=== PATIENT | male | born 1955 | race Caucasian/White ===

== ENCOUNTER 2016-08-17 18:40 | Emergency (ER) | payer OTHER ==
[2016-08-17 19:32] LABS: Urine Appearance Slightly Cloudy; Urine Bilirubin Negative (NEGATIVE); Urine Blood 5 /ul (NEGATIVE); Urine Color Yellow; Urine Ketone Negative (NEGATIVE); Urine Specific Gravity 1.005 SP.GR. (1.005-1.030)
[2016-08-17 19:33] LABS: Urine Bacteria None Seen; Urine Nitrite Negative (NEGATIVE); Urine Protein Negative (NEGATIVE); Urine RBC 0-5 /hpf (0-5); Urine Urobilinogen Normal (NORMAL)
--- NOTE | 2016-08-17 20:06 | ERNOTE ---
ER Male HPI Date of Service: 08/17/16 Stated Complaint: URINE CHECK ER Male: dysuria, other - dribbling Time Seen by Provider: 08/17/16 20:01 Source: patient Immunizations: IMMUNIZATION HX Immunizations Up to Date Yes History of Influenza Vaccine Yes Hx Pneumococcal Vaccination Yes Allergies/Adverse Reactions: Allergies latex Adverse Reaction (Verified 02/22/16 17:20) Home Medications: HOME MEDICATIONS Insulin Regular, Human [Humulin R] See Protocol SC AC 10/28/13 [Last Taken 11/14] LORazepam [Ativan] 0.5 mg PO TID PRN 07/19/14 [Last Taken Unknown] LORazepam [Ativan] 1 mg PO HS 07/19/14 [Last Taken 11/15/15] Liothyronine Sodium [Cytomel] 25 mcg PO HS 07/19/14 [Last Taken 11/15/15] traZODone HCL [Desyrel] 300 mg PO HS 07/19/14 [Last Taken 11/15/15] Nortriptyline HCl [Pamelor] 250 mg PO HS capsule 07/21/14 [Last Taken Unknown] Insulin Glargine,Hum.rec.anlog [Lantus] 25 units SC HS 02/26/15 [Last Taken ] Nitrofurantoin/Nitrofuran Mac [Macrobid] 100 mg PO Q12H #6 cap 08/29/15 [Last Taken Unknown] Phenazopyridine HCl [Pyridium] 200 mg PO TID #6 tablet 08/29/15 [Last Taken Unknown] Aspirin 325 mg PO DAILY 11/16/15 [Last Taken 11/15/15] Calcium 600-Vit D3 800 Tablet 1 tab PO DAILY 11/16/15 [Last Taken 11/15/15] Cholecalciferol (Vitamin D3) [Vitamin D3] 2,000 unit PO 11/16/15 [Last Taken ] Folic Acid 1 mg PO DAILY 11/16/15 [Last Taken 11/15/15] Insulin Aspart [Novolog] 4 units SC ACHSINS vial 11/16/15 [Last Taken Unknown] Insulin Glargine,Hum.rec.anlog [Lantus] 25 units SC HS vial 11/16/15 [Last Taken Unknown] [place]-3 Fatty Acids/Fish Oil [Fish Oil 1,000 mg Capsule] 1,000 mg PO DAILY 11/15 [Last Taken 11/15/15] Vitamin E Acetate [Vitamin E] 600 unit PO DAILY 11/16/15 [Last Taken 11/15/15] Sulfamethoxazole/Trimethoprim [Bactrim Ds] 1 tab PO BID #14 tab 08/17/16 [Last Taken Unknown] - History of Present Illness Narrative: 61 year old that has a one day history of dribbling and dysuria which he has associated with frequent UTIs. Hx of a neurogenic bladder secondary to diabetes mellitus, self catherterizes. No complaints of fevers, chills, N/V or back pain. Completed a course of antibiotics 10 days ago but can not remember what the drug was. Complaints of feeling anxious since his Nortriptyline was decreased. Denies any homicidal or suicidal ideations. Timing: Present: intermittent Quality: Present: mild Onset Location: Present: other Radiation: Present: none Activities at Onset: Present: none Modifying Factors - (Improves): Present: other - none Modifying Factors - (Worsens): Present: urinating, other Associated Symptoms: Present: denies symptoms Prior Treatment: Present: treated by physician Review of Systems - Review of Systems Constitutional: Present: no symptoms reported EYE: Present: no symptoms reported ENT: Present: no symptoms reported Respiratory: Present: no symptoms reported Cardiology: Present: no symptoms reported Gastrointestinal/Abdominal: Present: no symptoms reported Genitourinary: Present: See HPI Musculoskeletal: Present: no symptoms reported Skin: Present: no symptoms reported Neurological: Present: no symptoms reported Endocrine: Present: See HPI Hematologic/Lymphatic: Present: no symptoms reported Psych: Present: anxiety - His - Patient's Past Medical History Patient History - Medical: Cataracts, Diabetes Type 2, Diabetes Type 2 Insulin Dependent, Depression, UTI'S, Other Patient History - Cardiac/Respiratory: No pertinent hx Patient History - Cancer: No Hx of Cancer Patient History - Surgical Procedures: Cataracts, Cholecystectomy Patient History - Other: None - Family History Mother Family History - Medical: , No pertinent hx Family History - Cardiac/Respiratory: No pertinent hx Father Family History - Medical: , No pertinent hx - Social History Living Situations: spouse Abuse History: No History of abuse Psych History: No pertinent hx Smoking Status: Never smoker Alcohol Use: occasionally Drug Use: none - Immunizations Immunizations Up to Date: Yes Hx Pneumococcal Vaccination: Yes History of Influenza Vaccine: Yes Physical Exam - Physical Exam General Appearance: Present: no apparent distress Eye Exam: Normal inspection: bilateral Ears, Nose, Throat: Present: normal ENT inspection Neck: Present: normal inspection Respiratory: Present: no respiratory distress Cardiovascular/Chest: Present: regular rate, rhythm Gastrointestinal/Abdominal: Present: nondistended, soft Back Exam: Present: normal inspection Extremity Exam: Present: normal inspection Neurological Exam: Present: alert, oriented Skin Exam: Present: normal color ED Progress - Results and Orders Patient's Lab Results:: I have reviewed the patient's lab results. - Vital Signs Patient's Vital Signs:: I have reviewed the patient's vital signs. Vital Signs: Vital Signs 08/17/16 18:59 Temperature 37.2 C Pulse Rate 68 Respiratory 14 Rate Blood Pressure 160/82 O2 Sat by Pulse 99 Oximetry - Progress/Reassessment Chief Complaint: Genitourinary Problem Progress:: Unchanged Progress Note-Subjective: 08/17/16 20:48 The patient refused the Bactrim prescription, but then also declined Cipro. 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 She will administer the Rocephin at home. Departure Clinical Impression: Dysuria - Departure Disposition: Home self-care Condition: Good Instructions: Dysuria Print Language: [place] Citizen Additional Instructions: Follow up with your mental health counselor on Thursday in regards to changing the dosage of your medications and how you are feeling. Drink lots of water. If you feel worse return to the ED. Referrals: Eliel Jalloh MD [Primary Care Provider] - Prescriptions: Sulfamethoxazole/Trimethoprim [Bactrim Ds] 1 tab PO BID #14 tab
[2016-08-17] MEDS ORDERED: LORazepam 1 MG TABLET PO ONE (20:10)
[2016-08-17] MEDS ORDERED: LORazepam 1 MG TABLET ONE (20:16)
[2016-08-17] MEDS ORDERED: SULFAMETHOXAZOLE/TRIMETHOPRIM 1 TAB TABLET ONE (20:17)
[2016-08-17] MEDS: SULFAMETHOXAZOLE/TRIMETHOPRIM 1 TAB TABLET PO ONE ×2 (20:20→21:39)
[2016-08-17] MEDS ORDERED: CIPROFLOXACIN HCL 250 MG TABLET ONE (20:34)
[2016-08-17 21:40] VITALS: BP 187/77
== END 2016-08-17 21:00 | disposition home or self-care (01) ==
LOC: ER 18:40
DX: R30.0 Dysuria (principal)

== ENCOUNTER 2016-09-16 22:20 | Emergency (ER) | payer OTHER ==
[2016-09-16 22:31] VITALS: BP 138/78
[2016-09-16 22:41] LABS: Urine Bilirubin Negative (NEGATIVE); Urine Ketone Negative (NEGATIVE); Urine Nitrite Negative (NEGATIVE); Urine Protein Negative (NEGATIVE); Urine Urobilinogen Normal (NORMAL)
[2016-09-16 22:56] LABS: Urine Appearance Clear; Urine Bacteria 1+; Urine Blood 5 /ul (NEGATIVE); Urine Color Yellow; Urine RBC 0-5 /hpf (0-5)
--- NOTE | 2016-09-16 23:24 | ERNOTE ---
ER Male HPI Stated Complaint: URINARY PROBLEM ER Male: other - urinary frequency Time Seen by Provider: 09/16/16 23:20 Source: patient Exam Limitations: no limitations Immunizations: IMMUNIZATION HX Immunizations Up to Date Yes History of Influenza Vaccine Yes Hx Pneumococcal Vaccination Yes Allergies/Adverse Reactions: Allergies latex Adverse Reaction (Verified 09/16/16 22:31) Home Medications: HOME MEDICATIONS Insulin Regular, Human [Humulin R] See Protocol SC AC 10/28/13 [Last Taken 11/14] LORazepam [Ativan] 0.5 mg PO TID PRN 07/19/14 [Last Taken Unknown] LORazepam [Ativan] 1 mg PO HS 07/19/14 [Last Taken 11/15/15] Liothyronine Sodium [Cytomel] 25 mcg PO HS 07/19/14 [Last Taken 11/15/15] traZODone HCL [Desyrel] 300 mg PO HS 07/19/14 [Last Taken 11/15/15] Nortriptyline HCl [Pamelor] 250 mg PO HS capsule 07/21/14 [Last Taken Unknown] Insulin Glargine,Hum.rec.anlog [Lantus] 25 units SC HS 02/26/15 [Last Taken ] Nitrofurantoin/Nitrofuran Mac [Macrobid] 100 mg PO Q12H #6 cap 08/29/15 [Last Taken Unknown] Phenazopyridine HCl [Pyridium] 200 mg PO TID #6 tablet 08/29/15 [Last Taken Unknown] Aspirin 325 mg PO DAILY 11/16/15 [Last Taken 11/15/15] Calcium 600-Vit D3 800 Tablet 1 tab PO DAILY 11/16/15 [Last Taken 11/15/15] Cholecalciferol (Vitamin D3) [Vitamin D3] 2,000 unit PO 11/16/15 [Last Taken ] Folic Acid 1 mg PO DAILY 11/16/15 [Last Taken 11/15/15] Insulin Aspart [Novolog] 4 units SC ACHSINS vial 11/16/15 [Last Taken Unknown] Insulin Glargine,Hum.rec.anlog [Lantus] 25 units SC HS vial 11/16/15 [Last Taken Unknown] [place]-3 Fatty Acids/Fish Oil [Fish Oil 1,000 mg Capsule] 1,000 mg PO DAILY 11/15 [Last Taken 11/15/15] Vitamin E Acetate [Vitamin E] 600 unit PO DAILY 11/16/15 [Last Taken 11/15/15] Sulfamethoxazole/Trimethoprim [Bactrim Ds] 1 tab PO BID #14 tab 08/17/16 [Last Taken Unknown] - History of Present Illness Narrative: Pt states he has been having frequent urination of small amounts and is concerned that he may have a UTI as he has frequently. Quality: Present: mild Activities at Onset: Present: none Review of Systems - Review of Systems Constitutional: Absent: recent illness, fever, chills, fatigue Gastrointestinal/Abdominal: Absent: nausea, vomiting, abdominal pain Genitourinary: Present: See HPI. Absent: dysuria Musculoskeletal: Absent: back pain - Patient's Past Medical History Patient History - Medical: Cataracts, Diabetes Type 2, Diabetes Type 2 Insulin Dependent, Depression, UTI'S, Other Patient History - Cardiac/Respiratory: No pertinent hx Patient History - Cancer: No Hx of Cancer Patient History - Surgical Procedures: Cataracts, Cholecystectomy Patient History - Other: None - Family History Mother Family History - Medical: , No pertinent hx Family History - Cardiac/Respiratory: No pertinent hx Father Family History - Medical: , No pertinent hx - Social History Living Situations: home Abuse History: No History of abuse Psych History: No pertinent hx Smoking Status: Never smoker Alcohol Use: occasionally Drug Use: none - Immunizations Immunizations Up to Date: Yes Hx Pneumococcal Vaccination: Yes History of Influenza Vaccine: Yes Physical Exam - Physical Exam General Appearance: Present: wd/wn, alert, no apparent distress Head Exam: Present: normal inspection, no evidence of injury Eye Exam: Normal inspection: bilateral Neck: Present: normal inspection, supple, full range of motion Respiratory: Present: no respiratory distress, no accessory muscle use Gastrointestinal/Abdominal: Present: normal bowel sounds, nontender, nondistended, soft Back Exam: Present: normal inspection, normal range of motion, no CVA tenderness Extremity Exam: Present: normal inspection, non-tender Neurological Exam: Present: alert, oriented, normal mood/affect Skin Exam: Present: normal color, warm/dry ED Progress - Results and Orders Patient's Lab Results:: I have reviewed the patient's lab results. Results and Orders: Laboratory Tests 09/16/16 22:31 Urine Color Yellow Urine Appearance Clear Urine pH 6.0 Ur Specific [place] 1.010 Urine Protein Negative Urine Glucose (UA) Negative Urine Ketones Negative Urine Blood 5 H Urine Nitrate Negative Urine Bilirubin Negative Urine Urobilinogen Normal Ur Leukocyte Esterase Negative Urine RBC 0-5 Urine WBC 5-10 H Ur Epithelial Cells None seen Urine Bacteria 1+ H Urine Culture Comments Culture to follow - Vital Signs Patient's Vital Signs:: I have reviewed the patient's vital signs. Vital Signs: Vital Signs 09/16/16 22:29 Temperature 38.9 C H Pulse Rate 100 Respiratory 20 Rate Blood Pressure 138/78 O2 Sat by Pulse 100 Oximetry - Progress/Reassessment Chief Complaint: Genitourinary Problem Progress Note-Subjective: 09/16/16 23:24 discussed normal UA with patient he does not want any other testing done. declines further lab work. Departure Clinical Impression: Frequency of urination - Departure Disposition: Home self-care Condition: Good Instructions: Urinary Frequency, Adult Additional Instructions: See your regular doctor if symptoms persist. your urine will be cultured and if something is positive you will be contacted Referrals: Eliel Jalloh MD [Primary Care Provider] -
== END 2016-09-16 23:32 | disposition home or self-care (01) ==
LOC: ER 22:20
DX: R35.0 Frequency of micturition (principal); Z87.440 Personal history of urinary (tract) infections

== ENCOUNTER 2016-11-10 19:30 | Emergency (ER) | payer OTHER ==
[2016-11-10 19:50] LABS: Urine Bilirubin Negative (NEGATIVE); Urine Ketone Negative (NEGATIVE); Urine Nitrite Negative (NEGATIVE); Urine Protein Negative (NEGATIVE); Urine Specific Gravity <=1.005 SP.GR. (1.005-1.030); Urine Urobilinogen Normal (NORMAL)
[2016-11-10 20:06] LABS: Urine Appearance Clear; Urine Bacteria 1+; Urine Blood 5 /ul (NEGATIVE); Urine Color Yellow; Urine RBC 0-5 /hpf (0-5)
[2016-11-10 20:07] LABS: Urine Yeast Few - 1+
--- NOTE | 2016-11-10 20:24 | ERNOTE ---
ER Male HPI Stated Complaint: URINARY PROBLEM ER Male: other - feeling sick Time Seen by Provider: 11/10/16 20:11 Source: patient Exam Limitations: no limitations Immunizations: IMMUNIZATION HX Immunizations Up to Date Yes History of Influenza Vaccine More Information Required Hx Pneumococcal Vaccination More Information Required Allergies/Adverse Reactions: Allergies No Known Drug Allergies Allergy (Verified 11/10/16 19:33) latex Adverse Reaction (Verified 11/10/16 19:33) Home Medications: HOME MEDICATIONS Insulin Regular, Human [Humulin R] See Protocol SC AC 10/28/13 [Last Taken 11/14] LORazepam [Ativan] 0.5 mg PO TID PRN 07/19/14 [Last Taken Unknown] LORazepam [Ativan] 1 mg PO HS 07/19/14 [Last Taken 11/15/15] Liothyronine Sodium [Cytomel] 25 mcg PO HS 07/19/14 [Last Taken 11/15/15] traZODone HCL [Desyrel] 300 mg PO HS 07/19/14 [Last Taken 11/15/15] Nortriptyline HCl [Pamelor] 250 mg PO HS capsule 07/21/14 [Last Taken Unknown] Insulin Glargine,Hum.rec.anlog [Lantus] 25 units SC HS 02/26/15 [Last Taken ] Nitrofurantoin/Nitrofuran Mac [Macrobid] 100 mg PO Q12H #6 cap 08/29/15 [Last Taken Unknown] Phenazopyridine HCl [Pyridium] 200 mg PO TID #6 tablet 08/29/15 [Last Taken Unknown] Aspirin 325 mg PO DAILY 11/16/15 [Last Taken 11/15/15] Calcium 600-Vit D3 800 Tablet 1 tab PO DAILY 11/16/15 [Last Taken 11/15/15] Cholecalciferol (Vitamin D3) [Vitamin D3] 2,000 unit PO 11/16/15 [Last Taken ] Folic Acid 1 mg PO DAILY 11/16/15 [Last Taken 11/15/15] Insulin Aspart [Novolog] 4 units SC ACHSINS vial 11/16/15 [Last Taken Unknown] Insulin Glargine,Hum.rec.anlog [Lantus] 25 units SC HS vial 11/16/15 [Last Taken Unknown] [place]-3 Fatty Acids/Fish Oil [Fish Oil 1,000 mg Capsule] 1,000 mg PO DAILY 11/15 [Last Taken 11/15/15] Vitamin E Acetate [Vitamin E] 600 unit PO DAILY 11/16/15 [Last Taken 11/15/15] Sulfamethoxazole/Trimethoprim [Bactrim Ds] 1 tab PO BID #14 tab 08/17/16 [Last Taken Unknown] - History of Present Illness Narrative: Pt self catheterizes his bladder multiple times daily, due to "weak bladder". Denies prostate problems. Timing: Present: constant, getting worse Quality: Present: moderate Onset Location: Present: suprapubic Radiation: Present: none Activities at Onset: Present: none Prior Abdominal Problems: Present: similar symptoms Review of Systems - Review of Systems Constitutional: Present: chills. Absent: fever EYE: Present: no symptoms reported ENT: Present: no symptoms reported Gastrointestinal/Abdominal: Absent: nausea, vomiting, diarrhea Genitourinary: Present: pain - minimal Musculoskeletal: Present: no symptoms reported Skin: Present: no symptoms reported Neurological: Present: no symptoms reported Endocrine: Present: no symptoms reported Hematologic/Lymphatic: Present: no symptoms reported Psych: Present: no symptoms reported - Patient's Past Medical History Patient History - Medical: Cataracts, Diabetes Type 2, Diabetes Type 2 Insulin Dependent, Depression, UTI'S, Other Patient History - Cardiac/Respiratory: No pertinent hx Patient History - Cancer: No Hx of Cancer Patient History - Surgical Procedures: Cataracts, Cholecystectomy Patient History - Other: None - Family History Mother Family History - Medical: , No pertinent hx Family History - Cardiac/Respiratory: No pertinent hx Father Family History - Medical: , No pertinent hx - Social History Living Situations: home Abuse History: No History of abuse Psych History: No pertinent hx Smoking Status: Former smoker Have you smoked in the past 12 months: No Do you dip or chew tobacco: No Alcohol Use: occasionally Drug Use: none - Immunizations Immunizations Up to Date: Yes Hx Pneumococcal Vaccination: More Information Required to Determine History of Influenza Vaccine: More Information Required to Determine Physical Exam - Physical Exam General Appearance: Present: wd/wn, alert, no apparent distress Head Exam: Present: normal inspection, no evidence of injury Respiratory: Present: no respiratory distress, no accessory muscle use Gastrointestinal/Abdominal: Present: normal bowel sounds, nondistended, soft, tenderness - suprapubic. Absent: guarding, rebound Back Exam: Present: normal inspection, normal range of motion, no CVA tenderness Extremity Exam: Present: normal inspection, normal range of motion Neurological Exam: Present: alert, oriented, normal mood/affect Skin Exam: Present: normal color, warm/dry Lymphatic Exam: Present: no adenopathy ED Progress - Results and Orders Patient's Lab Results:: I have reviewed the patient's lab results. Results and Orders: Laboratory Tests 11/10/16 19:40 Urine Color Yellow Urine Appearance Clear Urine pH 6.0 Ur Specific [place] <=1.005 Urine Protein Negative Urine Glucose (UA) >=1000 H Urine Ketones Negative Urine Blood 5 H Urine Nitrate Negative Urine Bilirubin Negative Urine Urobilinogen Normal Ur Leukocyte Esterase 25 H Urine RBC 0-5 Urine WBC 5-10 H Ur Epithelial Cells 0-5 Urine Bacteria 1+ H Urine Yeast Few - 1+ H Urine Culture Comments Culture to follow Laboratory Tests 11/10/16 11/10/16 11/10/16 19:40 20:55 20:55 WBC 14.3 H Hgb 11.6 L Hct 34.4 L Plt Count 266 Sodium 131 L Potassium 4.5 Chloride 96 L Carbon Dioxide 24.4 Anion Gap 15.1 H BUN 13 Creatinine 1.81 H D Est GFR (Non-Af Amer) 40 L D BUN/Creatinine Ratio 7.2 L Random Glucose 721 H* Calcium 7.8 L Urine Color Yellow Urine Appearance Clear Urine pH 6.0 Ur Specific [place] <=1.005 Urine Protein Negative Urine Glucose (UA) >=1000 H Urine Ketones Negative Urine Blood 5 H Urine Nitrate Negative Urine Bilirubin Negative Urine Urobilinogen Normal Ur Leukocyte Esterase 25 H Urine RBC 0-5 Urine WBC 5-10 H Ur Epithelial Cells 0-5 Urine Bacteria 1+ H Urine Yeast Few - 1+ H Urine Culture Comments Culture to follow - Vital Signs Patient's Vital Signs:: I have reviewed the patient's vital signs. Vital Signs: Vital Signs 11/10/16 19:33 Temperature 38.2 C H Pulse Rate 70 Respiratory 14 Rate Blood Pressure 156/65 O2 Sat by Pulse 97 Oximetry - Progress/Reassessment Chief Complaint: Genitourinary Problem Progress:: Unchanged Progress Note-Subjective: 11/10/16 20:46 I checked the patients previous urine culture. He was resistant to all but 4 antibiotics. He was previously placed on Ertapenem because it is dosed q 24 and others were q 12 or q 8. I spoke with Dr. Jalloh about placing Justo on Ertapenem 1000 mg IV daily and scheduling this through the [facility] until the culture comes back. He will follow the culture and make any adjustments at that point. 11/10/16 21:02 Spoke with the patient and his about plans to start IV antibiotics. Pt agrees with plan. Departure Clinical Impression: Pyelonephritis - Departure Disposition: Home Follow Up Needed Condition: Good Instructions: Pyelonephritis, Adult, [id number] Additional Instructions: continue with your IV antibiotics daily here at the [facility] until contacted by Dr. Jalloh about any changes. See Dr. Jalloh within one week for follow up. Referrals: Eliel Jalloh MD [Primary Care Provider] -
[2016-11-10 21:01] LABS: Hematocrit 34.4 % (42.0-52.0); Hemoglobin 11.6 gm/dL (13.5-18.0); Mean Corpuscular Hemoglobin 30.7 pg (27-31); Mean Corpuscular Hgb Conc 33.7 g/dl (32-36); Mean Platelet Volume 9.6 fl (6.0-9.5); Neutrophil # 11.2 K/mm3 (1.3-6.0); Neutrophil % 77.9 % (42-75.0); Platelet Count 266 K/mm3 (150-450); Red Blood Count 3.78 M/mm3 (4.7-6.0); Red Cell Distribution Width 12.5 % (11.5-14.0); White Blood Count 14.3 K/mm3 (4.0-10.5)
[2016-11-10 21:16] LABS: BUN/Creatinine Ratio 7.2 (9.0-21.6); Calcium * 7.8 mg/dL (7.9-10.9); Estimated Creat Clear 40.4; Potassium 4.5 mmol/L (3.4-4.6)
[2016-11-10 21:21] LABS: Anion Gap 15.1 mmol/L (6.8-13.8); Carbon Dioxide 24.4 mmol/L (24-32.6)
[2016-11-10] MEDS ORDERED: ERTAPENEM SODIUM 1,000 MG in NORMAL SALINE 50 ML IV ONE (22:00)
[2016-11-10 22:24] VITALS: BP 177/72
== END 2016-11-10 22:20 | disposition home or self-care (01) ==
LOC: ER 19:30
DX: N12 Tubulo-interstitial nephritis, not specified as acute or chronic (principal); Z87.440 Personal history of urinary (tract) infections; Z87.891 Personal history of nicotine dependence

== ENCOUNTER 2018-07-16 18:30 | Observation (INO) ==
[2018-07-16] MEDS ORDERED: ACETAMINOPHEN 500 MG TABLET PO ONE (18:39)
[2018-07-16] MEDS ORDERED: NORMAL SALINE 1,000 ML IV ONE (18:51)
[2018-07-16] MEDS ORDERED: cefTRIAXone SODIUM 1,000 MG/100 ML BAG IV ONE (18:52)
--- NOTE | 2018-07-16 18:55 | ERNOTE ---
Medical Problem HPI - Narrative Date of Service: 07/16/18 - General Chief Complaint: Fever Time Seen by Provider: 07/16/18 18:34 Source: patient, family Exam Limitations: clinical condition - Immun/Allergies/Home Medications Immunizations: IMMUNIZATION HX Immunizations Up to Date Yes History of Influenza Vaccine Yes Hx Pneumococcal Vaccination Yes Allergies/Adverse Reactions: Allergies latex Adverse Reaction (Verified 07/16/18 18:49) Home Medications: HOME MEDICATIONS nortriptyline 50 mg capsule 200 mg PO HS cap 10/13/17 [Last Taken Unknown] Aspirin [Aspir-Low] 81 mg PO DAILY 07/16/18 [Last Taken Unknown] Insulin Pump Syringe, 1.8 ml [Minimed [place]] 1 ea MC 07/16/18 [Last Taken Unknown] Magnesium Oxide [Magnesium] 400 mg PO DAILY 07/16/18 [Last Taken Unknown] Melatonin 1 mg PO HS PRN 07/16/18 [Last Taken Unknown] Selenium 200 mcg PO DAILY 07/16/18 [Last Taken Unknown] Vitamin E 1,000 unit PO DAILY 07/16/18 [Last Taken Unknown] traZODone HCL [Trazodone HCl] 2 - 3 tab PO HS 07/16/18 [Last Taken Unknown] - Pain Score Pain Score #1 Pain Score: 0 - History of Present History Narrative: The patient is a 63 year old male who presents for fever and lethargy which has been present since this am. There are no associated symptoms. The patient denies pain. There are no alleviating factors. There are no aggravating factors. Previous treatments have included: none. The past medical history includes: BPH, DM and neurogenic bladder. The social history is positive for chew tobacco. The patient has had no ill contacts. Patient is oriented and responds appropriately to questions but is lethargic. states patient was sleeping when she left for work this am. Upon return home she found patient sleeping in room fully dressed and difficult to wake. Review of Systems - Review of Systems Constitutional: Present: fever, fatigue, malaise EYE: Present: no symptoms reported ENT: Present: no symptoms reported. Absent: ear pain, nasal drainage, sore throat Respiratory: Present: no symptoms reported. Absent: shortness of breath, cough Cardiology: Present: no symptoms reported. Absent: chest pain Gastrointestinal/Abdominal: Present: no symptoms reported. Absent: nausea, vomiting, diarrhea, abdominal pain Genitourinary: Present: no symptoms reported Musculoskeletal: Present: no symptoms reported Skin: Present: no symptoms reported. Absent: rash Neurological: Present: no symptoms reported. Absent: headache All Other Systems: All systems neg except as marked Medical History (Updated 10/13/17 @ 11:42 by Joyce Bustamante) Recurrent UTI (Chronic) Onset Date: Unknown resultant pyelonephritis due to diabetic neurogenic bladder Pancreatic insufficiency (Chronic) Onset Date: Unknown intolerant to enzyme replacement due to the fact that it creates constipation Osteopenia (Chronic) Onset Date: Unknown Neurogenic bladder (Chronic) Onset Date: Unknown due to diabetes Hypogonadism in male (Chronic) Onset Date: Unknown Diabetic neuropathy (Chronic) Onset Date: Unknown requiring straight catheter placement Diabetic nephropathy (Chronic) Onset Date: Unknown Diabetes mellitus type II, controlled, with no complications (Chronic) Onset Date: Unknown Chronic fibrosing pancreatitis (Chronic) Onset Date: Unknown BPH with urinary obstruction (Chronic) Onset Date: ~08/2015 Wears glasses Wears hearing aid Surgical History: Surgical History (Updated 10/13/17 @ 11:38 by Joyce Bustamante) H/O cystoscopy Onset Date: ~09/03/15 [facility]- Dr. Patel H/O vasectomy Onset Date: ~1991 Hx of cholecystectomy Onset Date: ~1979 OPEN Family History: Family History (Updated 10/13/17 @ 11:43 by Joyce Bustamante) Mother Alive and well Age 93 Father , Age 80 unknown history Social History: Preferred Language Vincentian Smoking Status Never smoker Do you dip or chew tobacco Yes Abuse History No History of abuse Psych History Hx of Depression Alcohol Use none Drug Use none (Last Updated 10/13/17 @ 11:41 by Joyce Bustmaante) No Social History Section defined Physical Exam - Physical Exam General Appearance: Present: no apparent distress, lethargic Head Exam: Present: normal inspection, no evidence of injury Eye Exam: Normal inspection: bilateral Neck: Present: normal inspection Respiratory: Present: no respiratory distress, normal breath sounds, no accessory muscle use, lungs clear Cardiovascular/Chest: Present: regular rate, rhythm, no murmur Gastrointestinal/Abdominal: Present: normal bowel sounds, nontender, nondistended, soft, no organomegaly Neurological Exam: Present: oriented, other - lethargic Skin Exam: Present: normal color, warm/dry Progress - Date and Time Seen: Date and Time: 07/16/18 19:58 Discussed results and findings with . requesting transfer to [facility]. Discussed with that due to patient management at this facility as well as closer facility she may be responsible for transport cost. Patient discussing with patient. 07/16/18 20:13 Discussed case with will admit for observation. Discussed with and is ok with staying here. - Results and Orders Patient's Lab Results:: I have reviewed the patient's lab results. - Vital Signs Patient's Vital Signs:: I have reviewed the patient's vital signs. Vital Signs: Vital Signs 07/16/18 18:34 Temperature 39.7 C H Pulse Rate 88 Respiratory Rate 22 H Blood Pressure 136/60 O2 Sat by Pulse Oximetry 94 - X-Ray X-Ray #1 X-Ray: chest Interpretation: Reviewed by me X-ray Comments: Likely left lung infiltrate, diffuse haziness. - Progress/Reassessment Chief Complaint: Fever Departure Clinical Impression: Pneumonia Qualifiers: Pneumonia type: due to unspecified organism Laterality: left Lung location: unspecified part of lung Qualified Code(s): J18.9 - Pneumonia, unspecified organism - Departure Disposition: Still a patient Condition: Fair
[2018-07-16 19:00] LABS: Urine Bilirubin Negative (NEGATIVE); Urine Blood Negative /ul (NEGATIVE); Urine Ketone Negative (NEGATIVE); Urine Nitrite Negative (NEGATIVE); Urine Protein Negative (NEGATIVE); Urine Urobilinogen Normal (NORMAL)
[2018-07-16 19:01] LABS: Hematocrit 41.1 % (42.0-52.0); Hemoglobin 13.7 gm/dL (13.5-18.0); Mean Cell Volume 91.5 fl (78-100); Mean Corpuscular Hemoglobin 30.5 pg (27-31); Mean Corpuscular Hgb Conc 33.3 g/dl (32-36); Mean Platelet Volume 9.7 fl (8-11.3); Neutrophil % 90.7 % (42-75.0); Platelet Count 307 K/mm3 (150-450); Red Blood Count 4.49 M/mm3 (4.7-6.0); Red Cell Distribution Width 12.2 % (11.5-14.0); White Blood Count 17.6 K/mm3 (4.0-10.5)
[2018-07-16 19:07] LABS: Urine Amorphous Sediment TRACE (NONE-FEW); Urine Appearance Slightly Cloudy (CLEAR); Urine Bacteria 2+; Urine Color Yellow; Urine RBC None Seen /hpf (0-5); Urine WBC TRACE /hpf (0-5)
[2018-07-16 19:27] LABS: Albumin * 3.6 gm/dl (3.4-5.0); Anion Gap 16.4 mmol/L (6.8-13.8); BUN/Creatinine Ratio 11.5 (9.0-21.6); Bilirubin, Total 0.3 mg/dL (0.0-1.1); Ca. Corrected For Albumin 8.5 mg/dL (8.4-10.2); Calcium * 8.5 mg/dL (7.9-10.9); Carbon Dioxide 22.5 mmol/L (24-32.6); Potassium 3.9 mmol/L (3.4-4.6); Total Protein 7.1 gm/dL (6.2-8.2)
[2018-07-16] MEDS ORDERED: AZITHROMYCIN 250 MG TABLET PO ONE (19:59)
--- NOTE | 2018-07-17 10:28 | HP ---
Chief Complaint - Chief Complaint Date of Service: 07/17/18 Time of Service: 10:28 Chief Complaint: fever, lethargic History of Present Illness: 63-year-old male presented to the ER on the day of admission for elevated temperature and lethargy. Patient was found in his bed by his spouse covered in sweat, slightly hard to arouse, just not feeling well. Prior to this happening he states he felt fine. He denied cough, shortness of breath, chest pain, wheezing. He also denied having any urgency/frequency/bladder pain. Patient does have a neurogenic bladder and self caths himself routinely, he has been treated multiple times in the last couple years for urinary tract infections. He states he knows how he feels when he gets them and this did not feel like that at the time. In the ER a UA was obtained which showed some urine glucose, positive leukocyte esterase, and 2+ your bacteria but otherwise unremarkable. He had a slightly elevated lactic acid at 2.1 and a C-reactive protein of 2.3 but the rest of his skin panel was fairly unremarkable. He had an elevated white count at 17.6 with a left shift of 90.7. Initial temp in the ER was 39.7. Chest x-ray was obtained which showed possible left middle lobe infiltrate though his inspiratory effort was minimal and he was asymptomatic from a pulmonary standpoint. He was treated with Rocephin and azithromycin for community- acquired pneumonia and admitted to the floor for observation due to elevated temp and lethargy. Medical History (Updated 07/17/18 @ 10:28 by Marcus Vaca DO) Recurrent UTI (Chronic) Onset Date: Unknown resultant pyelonephritis due to diabetic neurogenic bladder Pancreatic insufficiency (Chronic) Onset Date: Unknown intolerant to enzyme replacement due to the fact that it creates constipation Osteopenia (Chronic) Onset Date: Unknown Neurogenic bladder (Chronic) Onset Date: Unknown due to diabetes Hypogonadism in male (Chronic) Onset Date: Unknown Diabetic neuropathy (Chronic) Onset Date: Unknown requiring straight catheter placement Diabetic nephropathy (Chronic) Onset Date: Unknown Diabetes mellitus type II, controlled, with no complications (Chronic) Onset Date: Unknown Chronic fibrosing pancreatitis (Chronic) Onset Date: Unknown BPH with urinary obstruction (Chronic) Onset Date: ~08/2015 Wears glasses Wears hearing aid Surgical History: Surgical History (Updated 07/17/18 @ 10:28 by REMBERTO Redmond H/O cystoscopy Onset Date: ~09/03/15 [facility]- Dr. Patel H/O vasectomy Onset Date: ~1991 Hx of cholecystectomy Onset Date: ~1979 OPEN Family History: Family History (Updated 10/13/17 @ 11:43 by Joyce Bustamante) Mother Alive and well Age 93 Father , Age 80 unknown history Social History: Patient Lives/Resources With Spouse Utilized Preferred Language Maltese Do you have any judaism or Yes: Christian cultural preference? Smoking Status Never smoker Have you smoked in the past 12 No months Do you dip or chew tobacco Yes Abuse History No History of abuse Psych History Hx of Depression Alcohol Use none Drug Use none (Last Updated 10/13/17 @ 11:41 by Joyce Bustamante) No Social History Section defined Review Of Systems (GEN) - Review of Systems Generalized/Overall Review: Present: Fever, Malaise, Fatigue. Absent: Weight loss, Weight gain EENTM: Present: No Symptoms Reported Respiratory: Absent: Cough, Shortness of Breath, Wheezing Cardiac: Absent: Chest Pain, Edema, Palpitations Abdominal: Present: Abdominal Pain - Mild suprapubic abdominal pain. Absent: Nausea, Vomiting, Diarrhea Genitourinary: Absent: Burning, Itching, Urgency, Frequency Musculoskeletal: Present: No Symptoms Reported Neurological: Present: No Symptoms Reported Skin: Present: No Symptoms Reported Endocrine: Present: No Symptoms Reported Immunizations: IMMUNIZATION HX Immunizations Up to Date Yes History of Influenza Vaccine Yes Hx Pneumococcal Vaccination Yes Allergies/Adverse Reactions: Allergies Allergy/AdvReac Type Severity Reaction Status Date / Time latex AdvReac Verified 07/16/18 18:49 Home Medications: HOME MEDICATIONS nortriptyline 50 mg capsule 200 mg PO HS cap 10/13/17 [Last Taken 07/16/18] Aspirin [Aspir-Low] 81 mg PO DAILY 07/16/18 [Last Taken 07/16/18] Insulin Pump Syringe, 1.8 ml [Minimed [place]] 1 ea MC 07/16/18 [Last Taken Unknown] Magnesium Oxide [Magnesium] 400 mg PO DAILY 07/16/18 [Last Taken 07/16/18] Melatonin 1 mg PO HS PRN 07/16/18 [Last Taken 07/16/18] Selenium 200 mcg PO DAILY 07/16/18 [Last Taken 07/16/18] Vitamin E 1,000 unit PO DAILY 07/16/18 [Last Taken 07/16/18] traZODone HCL [Trazodone HCl] 3 tab PO HS 07/16/18 [Last Taken 07/16/18] Exam - Exam Vital Signs: Vital Signs - Last Taken Temp 37.0 C 07/17/18 06:23 Pulse 72 07/17/18 06:23 Resp 16 07/17/18 06:23 BP 153/68 H 07/17/18 06:23 Pulse Ox 96 07/17/18 06:23 Constitutional: Present: Alert, Oriented x3, Cooperative, Well developed, Well nourished Eye Exam: bilateral eye: normal inspection Neck: Present: non-tender, supple Back Exam: Present: normal inspection, no CVA tenderness Respiratory: Present: chest non-tender, lungs clear, normal breath sounds Cardiovascular/Chest: Present: normal peripheral pulses, regular rate, rhythm, no murmur Abdomen: Present: Normal bowel sounds, soft, nontender Skin Exam: Present: normal color, warm/dry Appearance: Present: appropriate appearance, appropriate insight Eye contact: Present: cooperative, good eye contact Thoughts: Present: normal thought pattern, normal mood /affect Diagnostic Studies: Abnormal Lab Results 07/16/18 07/16/18 07/16/18 Range/Units 18:39 18:54 18:54 WBC 17.6 H (4.0-10.5) K/mm3 RBC 4.49 L (4.7-6.0) M/mm3 Hct 41.1 L (42.0-52.0) % Immature Gran % (Auto) 0.60 H (0.001-0.429) % Immature Gran # (Auto) 0.10 H (0.000-0.0310) K/mm3 Neutrophils % 90.7 H (42-75.0) % Lymphocytes % 4.7 L (20-51) % Neutrophils # 16.0 H (1.3-6.0) K/mm3 Lymphocytes # 0.83 L (1.5-3.5) k/mm3 ESR (0-10) mm/hr Carbon Dioxide 22.5 L (24-32.6) mmol/L Anion Gap 16.4 H (6.8-13.8) mmol/L Est GFR (Non-Af Amer) 55 L (60-130) mL/min Random Glucose 202 H (70-110) mg/dL Lactic Acid, Venous (0.4-2.0) mmol/L C-Reactive Prot, Quant (0.0-0.9) mg/dL Urine Glucose (UA) 100 H (NEGATIVE) mg/dL Ur Leukocyte Esterase 25 H (NEGATIVE) /ul Urine Bacteria 2+ H (NONE) 07/16/18 07/16/18 07/16/18 Range/Units 18:54 18:54 18:54 WBC (4.0-10.5) K/mm3 RBC (4.7-6.0) M/mm3 Hct (42.0-52.0) % Immature Gran % (Auto) (0.001-0.429) % Immature Gran # (Auto) (0.000-0.0310) K/mm3 Neutrophils % (42-75.0) % Lymphocytes % (20-51) % Neutrophils # (1.3-6.0) K/mm3 Lymphocytes # (1.5-3.5) k/mm3 ESR 12 H (0-10) mm/hr Carbon Dioxide (24-32.6) mmol/L Anion Gap (6.8-13.8) mmol/L Est GFR (Non-Af Amer) (60-130) mL/min Random Glucose (70-110) mg/dL Lactic Acid, Venous 2.1 H (0.4-2.0) mmol/L C-Reactive Prot, Quant 2.3 H (0.0-0.9) mg/dL Urine Glucose (UA) (NEGATIVE) mg/dL Ur Leukocyte Esterase (NEGATIVE) /ul Urine Bacteria (NONE) 07/16/18 Range/Units 22:30 WBC (4.0-10.5) K/mm3 RBC (4.7-6.0) M/mm3 Hct (42.0-52.0) % Immature Gran % (Auto) (0.001-0.429) % Immature Gran # (Auto) (0.000-0.0310) K/mm3 Neutrophils % (42-75.0) % Lymphocytes % (20-51) % Neutrophils # (1.3-6.0) K/mm3 Lymphocytes # (1.5-3.5) k/mm3 ESR (0-10) mm/hr Carbon Dioxide (24-32.6) mmol/L Anion Gap (6.8-13.8) mmol/L Est GFR (Non-Af Amer) (60-130) mL/min Random Glucose (70-110) mg/dL Lactic Acid, Venous 2.1 H (0.4-2.0) mmol/L C-Reactive Prot, Quant (0.0-0.9) mg/dL Urine Glucose (UA) (NEGATIVE) mg/dL Ur Leukocyte Esterase (NEGATIVE) /ul Urine Bacteria (NONE) Microbiology 07/16/18 18:39 Urine Culture - Preliminary Urine,Catheterized Ruling Out Pathogen Laboratory Results WBC 17.6 K/mm3 (4.0-10.5) H 07/16/18 18:54 RBC 4.49 M/mm3 (4.7-6.0) L 07/16/18 18:54 Hgb 13.7 gm/dL (13.5-18.0) 07/16/18 18:54 Hct 41.1 % (42.0-52.0) L 07/16/18 18:54 MCV 91.5 fl (78-100) 07/16/18 18:54 MCH 30.5 pg (27-31) 07/16/18 18:54 MCHC 33.3 g/dl (32-36) 07/16/18 18:54 RDW 12.2 % (11.5-14.0) 07/16/18 18:54 Plt Count 307 K/mm3 (150-450) 07/16/18 18:54 MPV 9.7 fl (8-11.3) 07/16/18 18:54 Immature Gran % (Auto) 0.60 % (0.001-0.429) H 07/16/18 18:54 Immature Gran # (Auto) 0.10 K/mm3 (0.000-0.0310) H 07/16/18 18:54 90.7 % (42-75.0) H 07/16/18 18:54 4.7 % (20-51) L 07/16/18 18:54 3.4 % (0.0-9) 07/16/18 18:54 0.3 % (0.0-3.0) 07/16/18 18:54 0.3 % (0.0-1.0) 07/16/18 18:54 Nucleated RBC % 0.0 k/mm3 (0-1) 07/16/18 18:54 16.0 K/mm3 (1.3-6.0) H 07/16/18 18:54 0.83 k/mm3 (1.5-3.5) L 07/16/18 18:54 0.6 k/mm3 (0.0-1.0) 07/16/18 18:54 0.1 k/mm3 (0.0-0.7) 07/16/18 18:54 Absolute Basophils 0.1 k/mm3 (0.0-0.1) 07/16/18 18:54 ESR 12 mm/hr (0-10) H 07/16/18 18:54 Sodium 140 mmol/L (132-142) 07/16/18 18:54 142 mmol/L (130-142) 07/16/18 18:54 Potassium 3.9 mmol/L (3.4-4.6) 07/16/18 18:54 Chloride 105 mmol/L (97-106) 07/16/18 18:54 Carbon Dioxide 22.5 mmol/L (24-32.6) L 07/16/18 18:54 16.4 mmol/L (6.8-13.8) H 07/16/18 18:54 BUN 16 mg/dL (6-23) 07/16/18 18:54 1.39 mg/dL (0.4-1.4) 07/16/18 18:54 Est GFR (Non-Af Amer) 55 mL/min (60-130) L 07/16/18 18:54 11.5 (9.0-21.6) 07/16/18 18:54 202 mg/dL (70-110) H 07/16/18 18:54 2.1 mmol/L (0.4-2.0) H 07/16/18 22:30 Calcium 8.5 mg/dL (7.9-10.9) 07/16/18 18:54 Calcium Adj for Albumin 8.5 mg/dL (8.4-10.2) 07/16/18 18:54 0.3 mg/dL (0.0-1.1) 07/16/18 18:54 AST 19 U/L (0-48) 07/16/18 18:54 ALT 29 U/L (19-67) 07/16/18 18:54 155 U/L (50-170) 07/16/18 18:54 C-Reactive Prot, Quant 2.3 mg/dL (0.0-0.9) H 07/16/18 18:54 7.1 gm/dL (6.2-8.2) 07/16/18 18:54 3.6 gm/dl (3.4-5.0) 07/16/18 18:54 Yellow 07/16/18 18:39 Slightly cloudy (CLEAR) 07/16/18 18:39 6.0 pH (5.0-7.0) 07/16/18 18:39 Ur Specific [place] 1.010 SP.GR. (1.005-1.030) 07/16/18 18:39 Negative mg/dL (NEGATIVE) 07/16/18 18:39 100 mg/dL (NEGATIVE) H 07/16/18 18:39 Negative mg/dL (NEGATIVE) 07/16/18 18:39 Negative /ul (NEGATIVE) 07/16/18 18:39 Negative (NEGATIVE) 07/16/18 18:39 Negative mg/dl (NEGATIVE) 07/16/18 18:39 Normal EU/dl (NORMAL) 07/16/18 18:39 Ur Leukocyte Esterase 25 /ul (NEGATIVE) H 07/16/18 18:39 None seen /hpf (0-5) 07/16/18 18:39 Trace /hpf (0-5) 07/16/18 18:39 Ur Epithelial Cells 0-5 /hpf (0-5) 07/16/18 18:39 Amorphous Sediment Trace (NONE-FEW) 07/16/18 18:39 2+ (NONE) H 07/16/18 18:39 Culture to follow 07/16/18 18:39 Assessment/Plan - Narrative Narrative: Patient placed under observation for possible UTI as well as possible pneumonia. If patient feels better and remains afebrile likely will be discharged home later today. He has been afebrile overnight, tolerating p.o. States he feels fine. He has no symptoms of pneumonia or UTI at the moment but he was given a dose of Rocephin and started on a azithromycin. Looking back over previous urine cultures with the most recent being in regular E. coli pansensitive, will will likely treat his urine with Cipro and complete a Z-Rian for possible pneumonia. Patient is in agreement treatment plan, nurse will call with any question or concerns. Vital signs are stable. No DVT prophylaxis since he will only be here short time. Consistent carb diet as he is diabetic. - Assessment/Plan (1) Pneumonia Problem: Suspected Qualifiers: Pneumonia type: due to unspecified organism Laterality: left Lung location: unspecified part of lung Qualified Code(s): J18.9 - Pneumonia, unspecified organism (2) Neurogenic bladder Problem: Chronic (3) UTI (lower urinary tract infection) Problem: Suspected
--- NOTE | 2018-07-17 11:05 | DS ---
(1) Pneumonia Problem: Suspected Qualifiers: Pneumonia type: due to unspecified organism Laterality: left Lung location: unspecified part of lung Qualified Code(s): J18.9 - Pneumonia, unspecified organism (2) Neurogenic bladder Problem: Chronic (3) UTI (lower urinary tract infection) Problem: Suspected Description of Stay: Patient originally brought into the hospital for fever and lethargy. Suspected pneumonia versus UTI on admission. Treated with Rocephin and azithromycin. He has been afebrile and feels well since being brought into the hospital. Tolerating p.o. well. He states that he is ready to go home, his vital signs been stable. We will send him out on Cipro for possible UTI while we wait for urine cultures to come back as he was sensitive to this medicine following his last UTI. We will also send him out with 4 more days of azithromycin to complete community acquired pneumonia treatment as this also may be what was making him ill though unsure as to whether or not either 1 of the as are the true culprits but this is what he was being treated for and he was started on and he is done better since receiving antibiotics so we will continue. While patient follow-up with his PCP in the nex 1 to 2 weeks. Patient is in agreement with treatment plan, he will return to the hospital with any complications or concerns. Procedures Performed: none Results and Findings: Pending Mircobiology Results 07/16/18 18:39 Urine,Catheterized Urine Culture - Preliminary Ruling Out Pathogen Lab Pending Results 07/16/18 18:39: Urine Color Yellow, Urine Appearance Slightly cloudy, Urine pH 6.0, Ur Specific [place] 1.010, Urine Protein Negative, Urine Glucose (UA) 100 H, Urine Ketones Negative, Urine Blood Negative, Urine Nitrate Negative, Urine Bilirubin Negative, Urine Urobilinogen Normal, Ur Leukocyte Esterase 25 H, Urine RBC None seen, Urine WBC Trace, Ur Epithelial Cells 0-5, Amorphous Sediment Trace, Urine Bacteria 2+ H, Urine Culture Comments Culture to follow 07/16/18 18:54: WBC 17.6 H, RBC 4.49 L, Hgb 13.7, Hct 41.1 L, MCV 91.5, MCH 30.5, MCHC 33.3, RDW 12.2, Plt Count 307, MPV 9.7, Immature Gran % (Auto) 0.60 H, Immature Gran # (Auto) 0.10 H, Neutrophils % 90.7 H, Lymphocytes % 4.7 L, Monocytes % 3.4, Eosinophils % 0.3, Basophils % 0.3, Nucleated RBC % 0.0, Neutrophils # 16.0 H, Lymphocytes # 0.83 L, Monocytes # 0.6, Eosinophils # 0.1, Absolute Basophils 0.1 07/16/18 18:54: Sodium 140, Plasma Sodium 142, Potassium 3.9, Chloride 105, Carbon Dioxide 22.5 L, Anion Gap 16.4 H, BUN 16, Creatinine 1.39, Est GFR (Non- Af Amer) 55 L, BUN/Creatinine Ratio 11.5, Random Glucose 202 H, Calcium 8.5, Calcium Adj for Albumin 8.5, Total Bilirubin 0.3, AST 19, ALT 29, Alkaline Phosphatase 155, Total Protein 7.1, Albumin 3.6 07/16/18 18:54: Lactic Acid, Venous 2.1 H 07/16/18 18:54: ESR 12 H 07/16/18 18:54: C-Reactive Prot, Quant 2.3 H 07/16/18 22:30: Lactic Acid, Venous 2.1 H Discharge Location: Home Disposition: Home self-care Condition: Fair Discharge Activity: Activity as tolerated Discharge Diet: Consistent carbs Referrals: Eliel Jalloh MD [Primary Care Provider] - Two Weeks Prescriptions (Any new or edited meds): Azithromycin 250 mg PO DAILY #4 tab Ciprofloxacin HCl [Cipro] 500 mg PO BID #20 tab Complete Home Medications List: Complete Home Medication List: nortriptyline 50 mg capsule 200 mg PO HS cap 10/13/17 Aspirin [Aspir-Low] 81 mg PO DAILY 07/16/18 Insulin Pump Syringe, 1.8 ml [Minimed [place]] 1 ea MC 07/16/18 Magnesium Oxide [Magnesium] 400 mg PO DAILY 07/16/18 Melatonin 1 mg PO HS PRN 07/16/18 Selenium 200 mcg PO DAILY 07/16/18 Vitamin E 1,000 unit PO DAILY 07/16/18 traZODone HCL [Trazodone HCl] 3 tab PO HS 07/16/18 Azithromycin 250 mg PO DAILY #4 tab 07/17/18 Ciprofloxacin HCl [Cipro] 500 mg PO BID #20 tab 07/17/18
[2018-07-17] MEDS ORDERED: MELATONIN 1 MG PO PRN (11:06)
[2018-07-17 11:52] VITALS: BP 151/75
[2018-07-17] MEDS ORDERED: TRAZODONE HCL PO SCH (21:00)
[2018-07-17] MEDS ORDERED: NORTRIPTYLINE PO SCH (21:00)
[2018-07-18] MEDS ORDERED: ASPIRIN 81 MG TABLET.DR PO SCH (09:00)
[2018-07-18] MEDS ORDERED: MAGNESIUM OXIDE 400 MG TABLET PO SCH (09:00)
== END 2018-07-17 12:13 | disposition home or self-care (01) ==
LOC: MS 18:30 → ER 18:30 → MS 20:45
PROVIDERS: ADMIT Family Medicine; ATTEND Family Medicine
CPT/HCPCS: 36415; 51702; 71010; 71045; 80053; 81001; 83605; 85025; 85652; 86140; 87040; 87077; 87086; 87186; 96361; 96365; 99285; G0378